=== PATIENT | male | born 1995 | race Caucasian/White ===

== ENCOUNTER 2017-10-05 08:14 | Emergency (ER) | payer BC, OTHER ==
[~2017-10-05] VITALS: Ht 175.3 cm; Wt 100.7 kg
[~2017-10-05 08:14] MED LIST: AMPH1TAB36 PO; TYLCOD5S PO
[2017-10-05 08:16] VITALS: BP 182/120; PULSE 82; RESP 18; TEMP 98.3; O2SAT 100
[2017-10-05] MEDS ORDERED: CEPH-460 PO (08:43)
[2017-10-05] MEDS ORDERED: IBUP-232 PO (08:43)
[2017-10-05] MEDS ORDERED: LIDOCAINE HCL 1% PF 30 ML VIAL ONE (08:44)
--- NOTE | 2017-10-05 08:44 | PD ---
HPI Chief Complaint: Laceration/Skin Injury Time Seen by Provider: 08:35 Travel History International Travel<30 days: No Contact w/Intl Traveler<30days: No Traveled to known affect area: No History of Present Illness HPI Patient is a 22-year-old male who presents to the emergency room with complaints of laceration to his left hand. Patient reports that on 8 AM this morning, he was using a razor and "sliced his left hand." Patient is right- hand dominant. Patient is unsure if his tetanus is up-to-date. Patient reports that he thinks that the razor was clean. PFSH Past Medical History ADHD: Yes Diminished Hearing: No Immunizations Current: Yes (UTD) Social History Alcohol Use: No Tobacco Use: No Substance Use: No Allergies-Medications (Allergen,Severity, Reaction): Coded Allergies: No Known Allergies (Verified Adverse Reaction, Unknown, 10/05/17) Reported Meds & Prescriptions Reported Meds & Active Scripts Active Ibuprofen 600 Mg Tab 600 Mg PO Q6H PRN Keflex (Cephalexin) 500 Mg Cap 500 Mg PO Q6H 5 Days Review of Systems General / Constitutional: No: Fever Eyes: No: Visual changes HENT: No: Headaches Cardiovascular: No: Chest Pain or Discomfort Respiratory: No: Shortness of Breath Gastrointestinal: No: Abdominal Pain Genitourinary: No: Dysuria Musculoskeletal: No: Pain Skin: Positive Other (Left hand laceration), No Rash Neurologic: No: Weakness Psychiatric: No: Depression Endocrine: No: Polydipsia Hematologic/Lymphatic: No: Easy Bruising Physical Exam Narrative GENERAL: Well-nourished, well-developed patient. SKIN: Focused skin assessment warm/dry. Patient with 3.5 cm linear laceration to left hand HEAD: Normocephalic. EYES: No scleral icterus. No injection or drainage. NECK: Supple, trachea midline. No JVD or lymphadenopathy. CARDIOVASCULAR: Regular rate and rhythm without murmurs, gallops, or rubs. RESPIRATORY: Breath sounds equal bilaterally. No accessory muscle use. GASTROINTESTINAL: Abdomen soft, non-tender, nondistended. MUSCULOSKELETAL: No cyanosis, or edema. LUE: Patient with 3.5 cm linear laceration to left hand, pulses intact, neurovascular intact, there does not appear to be any tendon injury RUE: Normal exam BACK: Nontender without obvious deformity. No CVA tenderness. Data Data Last Documented VS Vital Signs Date Time Temp Pulse Resp B/P (MAP) Pulse Ox O2 Delivery O2 Flow Rate FiO2 10/05/17 08:16 98.3 82 18 182/120 (140) 100 Orders Orders Lidocaine 1% Inj (50 Ml) (Xylocaine 1% I (10/05/17 08:45) Tetanus/Diphtheria Tox Adult (Tetanus/Di (10/05/17 08:45) Cephalexin (Keflex) (10/05/17 08:45) Lidocaine Pf 1% Inj (Xylocaine-Mpf 1% In (10/05/17 08:44) MDM Medical Decision Making Medical Screen Exam Complete: Yes Emergency Medical Condition: Yes Medical Record Reviewed: Yes Interpretation(s) Vital Signs Date Time Temp Pulse Resp B/P (MAP) Pulse Ox O2 Delivery O2 Flow Rate FiO2 10/05/17 08:16 98.3 82 18 182/120 (140) 100 Differential Diagnosis Hand laceration Narrative Course Patient with 3.5 cm linear laceration to left hand. Tetanus will be updated today, we will start him on Keflex as there is concerns that the razor may be dirty. Plan to have patient return to the emergency room or to his primary care doctor in 48 hours for reevaluation of wound. Signs and symptoms of when to return to the emergency room was reviewed with the patient in detail. Diagnosis Primary Impression: Laceration of hand Qualified Codes: S61.412A - Laceration without foreign body of left hand, initial encounter Patient Instructions: General Instructions Additional Instructions: Please follow up with your primary care doctor or return to the ER in 48 hours for wound check Return to the ER if you develop any signs of infection Your tetanus booster was updated today Return to the ER if symptoms worsen or progress Return to the ER as needed Suture removal in 7 days Keep wound clean and covered and apply bacitracin dressings Med/Other Pt SpecificInfo: Prescription(s) given Scripts Ibuprofen (Ibuprofen) 600 Mg Tab 600 MG PO Q6H Y for Pain/Inflammation, #40 TAB 0 Refills Prov: Louisa Esteban DO 10/05/17 Cephalexin (Keflex) 500 Mg Cap 500 MG PO Q6H for Infection for 5 Days, #20 CAP 0 Refills Prov: Louisa Esteban DO 10/05/17 Disposition: 01 DISCHARGE HOME Condition: Stable Louisa Esteban DO October 05, 2017 08:44
[2017-10-05] MEDS ORDERED: TETANUS/DIPHTHERIA TOXOID ADULT 0.5 ML VIAL IM ONE (08:45)
[2017-10-05] MEDS ORDERED: CEPHALEXIN MONOHYDRATE 500 MG CAP PO ONE (08:45)
[2017-10-05] MEDS ORDERED: LIDOCAINE HCL 1% 50 ML VIAL INFIL ONE (08:45)
--- NOTE | 2017-10-05 09:25 | PD ---
Physical Exam Date Seen by Provider: October 05, 2017 Narrative I was asked to repair a laceration to the left thenar prominence. LACERATION LOCATION: Left thenar prominence LENGTH: 3-4 cm NUMBER OF STITCHES/MARTIN: 7 REPAIR: The area of the laceration was prepped with Betadine and sterilely draped. The laceration was infiltrated with Lidocaine without epinephrine. The wound was copiously irrigated and explored without evidence of foreign body, tendon injury or neurovascular injury. The wound was closed using 5-0 Prolene. This was a single layer repair. A sterile dressing was applied. The patient was advised to keep the dressing clean and dry. Patient tolerated the procedure well. Data Data Last Documented VS Vital Signs Date Time Temp Pulse Resp B/P (MAP) Pulse Ox O2 Delivery O2 Flow Rate FiO2 10/05/17 08:16 98.3 82 18 182/120 (140) 100 Orders Orders Lidocaine 1% Inj (50 Ml) (Xylocaine 1% I (10/05/17 08:45) Tetanus/Diphtheria Tox Adult (Tetanus/Di (10/05/17 08:45) Cephalexin (Keflex) (10/05/17 08:45) Lidocaine Pf 1% Inj (Xylocaine-Mpf 1% In (10/05/17 08:44) MDM Supervised Visit with ILEANA: No Diagnosis Primary Impression: Laceration of hand Qualified Codes: S61.412A - Laceration without foreign body of left hand, initial encounter Referrals: Primary Care Physician 2 days Patient Instructions: General Instructions, Laceration (ED) Departure Forms: Tests/Procedures, Work Release Enter return to work date: October 07, 2017 Additional Instruction: Please follow up with your primary care doctor or return to the ER in 48 hours for wound check Return to the ER if you develop any signs of infection Your tetanus booster was updated today Return to the ER if symptoms worsen or progress Return to the ER as needed Suture removal in 7 days Keep wound clean and covered and apply bacitracin dressings Scripts Ibuprofen (Ibuprofen) 600 Mg Tab 600 MG PO Q6H Y for Pain/Inflammation, #40 TAB 0 Refills Prov: Louisa Esteban DO 10/05/17 Cephalexin (Keflex) 500 Mg Cap 500 MG PO Q6H for Infection for 5 Days, #20 CAP 0 Refills Prov: Louisa Esteban DO 10/05/17 Disposition: 01 DISCHARGE HOME Condition: Stable Evelyn Appiah October 05, 2017 09:25
[2017-10-05] MEDS ORDERED: BACITRACIN OINT 0.9 GM PKT TOPICAL ONE (09:45)
== END 2017-10-05 09:51 | disposition home or self-care (01) ==
LOC: PHED 08:14
DX: S61.412A Laceration without foreign body of left hand, initial encounter (principal); F90.9 Attention-deficit hyperactivity disorder, unspecified type; W27.8XXA Contact with other nonpowered hand tool, initial encounter; Z23 Encounter for immunization
CPT/HCPCS: 12002; 90471; 90714

== ENCOUNTER 2017-10-07 17:08 | Emergency (ER) | payer BC ==
[~2017-10-07] VITALS: Ht 175.3 cm; Wt 100.4 kg
[~2017-10-07 17:08] MED LIST changes: -AMPH1TAB36 PO; +CEPH-460 PO; +IBUP-232 PO; -TYLCOD5S PO
[2017-10-07 17:13] VITALS: BP 153/100; PULSE 82; RESP 16; TEMP 98.2; O2SAT 97
--- NOTE | 2017-10-07 18:13 | PD ---
HPI Chief Complaint: Wound/Suture/Staple Re-Check Time Seen by Provider: 18:04 Travel History International Travel<30 days: No Contact w/Intl Traveler<30days: No Traveled to known affect area: No History of Present Illness HPI This is a 22-year-old male here for wound recheck of a laceration to the left hand. He denies any fever, increasing pain, redness or drainage from the site. His discharge instructions instructed that he follow-up with his primary doctor in 2 days for recheck. Patient does not have a primary doctor therefore presented to the emergency room. He has no medical complaint. PFSH Past Medical History ADHD: Yes Diminished Hearing: No Immunizations Current: Yes (UTD) Tetanus Vaccination: < 5 Years Influenza Vaccination: No Past Surgical History Surgical History: No Previous Surgery Social History Alcohol Use: Yes (occass.) Tobacco Use: No Substance Use: No Allergies-Medications (Allergen,Severity, Reaction): Coded Allergies: No Known Allergies (Verified Adverse Reaction, Unknown, 10/07/17) Reported Meds & Prescriptions Reported Meds & Active Scripts Active Ibuprofen 600 Mg Tab 600 Mg PO Q6H PRN Keflex (Cephalexin) 500 Mg Cap 500 Mg PO Q6H 5 Days Review of Systems Except as stated in HPI: all other systems reviewed are Neg General / Constitutional: No: Fever Eyes: No: Visual changes HENT: No: Headaches Cardiovascular: No: Chest Pain or Discomfort Respiratory: No: Shortness of Breath Gastrointestinal: No: Abdominal Pain Physical Exam Narrative GENERAL: Alert and well-appearing 22-year-old male SKIN: Healing laceration to the left hand without evidence of infection. Sutures are in place HEAD: Normocephalic. EYES: No injection or drainage. NECK: Supple MUSCULOSKELETAL: No cyanosis, or edema. Left hand: Full range of motion of all fingers. Data Data Last Documented VS Vital Signs Date Time Temp Pulse Resp B/P (MAP) Pulse Ox O2 Delivery O2 Flow Rate FiO2 10/07/17 17:13 98.2 82 16 153/100 (117) 97 MDM Medical Decision Making Medical Screen Exam Complete: Yes Emergency Medical Condition: Yes Differential Diagnosis Wound recheck, abscess, cellulitis, wound infection Narrative Course 22-year-old male here for a laceration recheck. There is no evidence of infection. Diagnosis Primary Impression: Encounter for wound re-check Referrals: Primary Care Physician Additional Instructions: Continue antibiotics as directed Continue local wound care as directed Sutures need to be out 7-10 days from the date of repair Disposition: 01 DISCHARGE HOME Condition: Stable Kiki Hernandez October 07, 2017 18:13
== END 2017-10-07 18:35 | disposition home or self-care (01) ==
LOC: PHEFT 17:08
DX: Z09 Encounter for follow-up examination after completed treatment for conditions other than malignant neoplasm (principal); S61.412D Laceration without foreign body of left hand, subsequent encounter; X58.XXXD Exposure to other specified factors, subsequent encounter
CPT/HCPCS: 99281

== ENCOUNTER 2017-10-12 14:42 | Emergency (ER) | payer BC, OTHER ==
[~2017-10-12] VITALS: Ht 175.3 cm; Wt 101.0 kg
[2017-10-12 14:43] VITALS: BP 142/89; PULSE 78; RESP 16; TEMP 99; O2SAT 98
--- NOTE | 2017-10-12 15:04 | PD ---
HPI Chief Complaint: Wound/Suture/Staple Re-Check Time Seen by Provider: 14:56 Travel History International Travel<30 days: No Contact w/Intl Traveler<30days: No Traveled to known affect area: No History of Present Illness HPI 22-year-old male here for suture removal. Patient sustained laceration to the left hand 7 days ago. He denies any fever, redness, drainage from the site. He has no medical complaint. [facility] Past Medical History ADHD: Yes Diminished Hearing: No Immunizations Current: Yes (UTD) Tetanus Vaccination: < 5 Years Social History Alcohol Use: Yes (occass.) Tobacco Use: No Substance Use: No Allergies-Medications (Allergen,Severity, Reaction): Coded Allergies: shrimp (Verified Allergy, Severe, EYE SWELLING, 10/12/17) Reported Meds & Prescriptions Reported Meds & Active Scripts Active No Active Prescriptions or Reported Medications Review of Systems Except as stated in HPI: all other systems reviewed are Neg General / Constitutional: No: Fever Physical Exam Narrative GENERAL: Alert and well-appearing 22-year-old male SKIN: Well-healed laceration to the left hand with mild erythema noted at suture line. Patient denies tenderness. No fluctuance, induration, surrounding cellulitis. No lymphangitis. No drainage from the site. HEAD: Normocephalic. EYES: No injection or drainage. NECK: Supple MUSCULOSKELETAL: No cyanosis, or edema. Data Data Last Documented VS Vital Signs Date Time Temp Pulse Resp B/P (MAP) Pulse Ox O2 Delivery O2 Flow Rate FiO2 10/12/17 14:43 99.0 78 16 142/89 (106) 98 MDM Medical Decision Making Medical Screen Exam Complete: Yes Emergency Medical Condition: Yes Differential Diagnosis Suture removal, wound infection, abscess, cellulitis Narrative Course 22-year-old male here for suture removal. Sutures were removed. Patient has mild erythema noted at the site. He denies any pain. The area is nontender. No fluctuance or abscess. He was encouraged to keep a close eye on the area and return if he develops redness. Procedures Procedure Narrative Suture removal performed Diagnosis Primary Impression: Visit for suture removal Referrals: John Galindo MD (PCP) Patient Instructions: General Instructions Departure Forms: Tests/Procedures Scripts No Active Prescriptions or Reported Meds Disposition: 01 DISCHARGE HOME Condition: Stable Kiki Hernandez Oct 12, 2017 15:04
== END 2017-10-12 15:14 | disposition home or self-care (01) ==
LOC: PHEFT 14:42
DX: Z48.02 Encounter for removal of sutures (principal); F90.9 Attention-deficit hyperactivity disorder, unspecified type
CPT/HCPCS: 99281